=== PATIENT | male | born 1990 | race Caucasian/White ===

== ENCOUNTER 2017-08-07 03:38 | Emergency (ER) | payer BC ==
[2017-08-07] MEDS ORDERED: CIPROFLOXACIN HCL/DEXAMETH OTIC DROP 7.5 ML AD ONE (04:33)
[2017-08-07] MEDS ORDERED: BUPIVACAINE HCL 0.5 % INJ/PF 30 ML SDV INJ ONE (04:33)
[2017-08-07] MEDS ORDERED: AMOXICILLIN TR/POT CLAVULANATE 500-125 MG TAB PO ONE (04:33)
--- NOTE | 2017-08-07 05:25 | ER Document Report ---
ED General - General Chief Complaint: Ear Pain Stated Complaint: EAR PAIN Time Seen by Provider: 08/07/17 04:28 Notes: Patient is a 26-year-old male who presents with complaint of pain in his right ear. He says he does clean his ears a lot with the Q-tips. He says he is had an ear infection his left ear before for similar thing. He says he has had worsening swelling in his ear over the last 2-3 days. He did have some leftover eardrops from his previous infection but says they are not working. He denies any pain or swelling over the mastoid process. No fevers. He does feel that there is some swelling going into the face just anterior to the ear. No other complaints at this time. No difficulty breathing or swallowing. TRAVEL OUTSIDE OF THE [place] IN LAST 30 DAYS: No - Related Data Allergies/Adverse Reactions: No Known Allergies Allergy (Verified 12/16/13 12:58) Past Medical History - Social History Smoking Status: Never Smoker Chew tobacco use (# tins/day): No Frequency of alcohol use: Rare Drug Abuse: None Family History: Reviewed & Not Pertinent Patient has suicidal ideation: No Patient has homicidal ideation: No Renal/ Medical History: Reports: Hx Kidney Stones. Denies: Hx Peritoneal Dialysis Past Surgical History: Reports: Hx Orthopedic Surgery - Immunizations Hx Diphtheria, Pertussis, Tetanus Vaccination: Yes Review of Systems - Review of Systems Notes: My Normal Review Basic REVIEW OF SYSTEMS: CONSTITUTIONAL : Denies fever, chills, or sweats. Denies recent illness. EENT: Right ear pain CARDIOVASCULAR: Denies chest pain. RESPIRATORY: Denies cough, cold, or chest congestion. Denies shortness of breath, difficulty breathing, or wheezing. GASTROINTESTINAL: Denies abdominal pain. Denies nausea, vomiting, or diarrhea. Denies constipation. Last BM: NEUROLOGICAL: Denies altered mental status or loss of consciousness. Denies headache. ALL OTHER SYSTEMS REVIEWED AND NEGATIVE. Physical Exam - Vital signs Vitals: Temp Pulse BP Pulse Ox 99.5 F 93 148/88 H 93 08/07/17 03:48 08/07/17 03:48 08/07/17 03:48 08/07/17 03:48 - Notes Notes: General Appearance: Well nourished, alert, cooperative, no acute distress, no obvious discomfort. Vitals: reviewed, See vital signs table. Head: no swelling or tenderness to the head Eyes: PERRL, EOMI, Conjuctiva clear Mouth: No decreasd moisture Throat: No tonsillar inflammation, No airway obstruction, No lymphadenopathy Neck: Supple, no neck tenderness, Ears: Inflamed swollen right ear canal consistent with otitis externa. Her canal is completely swollen shut. Patient has pain with pulling or movement of the external right ear. No redness or swelling over the mastoid process. Lungs: No wheezing, No rales, No rhonci, No accessory muscle use, good air exchange bilaterally. Heart: Normal rate, Regular rythm, No murmur, no rub Neuro: speech clear, oriented x 3, normal affect, responds appropriately to questions. Course - Re-evaluation Re-evalutation: 08/07/17 07:02 Patient appears to have otitis externa. Being that the ear canals completely shut I will also place him on a systemic antibiotics as well as eardrops. I also gave him a 5 mL syringe of bupivacaine. Informed him he can place 2 drops bupivacaine and is here every 6 hours to help with pain. Encouraged him to return to ER immediately if he has any pain or swelling over the mastoid process , fevers, worsening symptoms. I did show the patient where the mastoid process is located. Patient agrees with plan will be discharged home. Dictation of this chart was performed using voice recognition software; therefore, there may be some unintended grammatical errors. - Vital Signs Vital signs: Temp Pulse Resp BP Pulse Ox 99.5 F 85 142/90 H 96 08/07/17 03:48 08/07/17 05:29 08/07/17 05:29 08/07/17 05:29 Discharge - Discharge Clinical Impression: Otitis externa Qualifiers: Otitis externa type: unspecified type Chronicity: acute Laterality: right Qualified Code(s): H60.501 - Unspecified acute noninfective otitis externa, right ear Condition: Good Disposition: HOME, SELF-CARE Instructions: Otitis Externa ([facility]) Additional Instructions: Please take the antibiotics as prescribed. Please use the Cipro ear drops twice a day for 7 days. Please return to the ER immediately if you develop worsening swelling, fevers, or pain over the bone behind your ear called the Mastoid process. Prescriptions: Amox Tr/Potassium Clavulanate [Augmentin 875-125 Tablet] 1 tab PO BID 7 Days tablet Forms: Return to Work Referrals: LIZETTE LEE MD [Primary Care Provider] - Follow up in 3-5 days
[2017-08-07 05:31] VITALS: BP 142/90
== END 2017-08-07 05:32 | disposition home or self-care (01) ==
LOC: ER 03:38
DX: H60.501 Unspecified acute noninfective otitis externa, right ear (principal); H92.01 Otalgia, right ear
CPT/HCPCS: 99282; J3490 ×2

== ENCOUNTER 2019-07-22 23:39 | Emergency (ER) | payer BC ==
[2019-07-23] MEDS ORDERED: ACETAMINOPHEN 325 MG TABLET PO ONE (00:33)
[2019-07-23 01:05] LABS: ABSOLUTE BASOPHILS # (AUTO) 0.1 10^3/uL (0.0-0.2); ABSOLUTE EOSINOPHILS # (AUTO) 0.1 10^3/uL (0.0-0.6); ABSOLUTE LYMPHOCYTES (AUTO) 1.3 10^3/uL (0.5-4.7); ABSOLUTE MONOCYTES (AUTO) 0.5 10^3/uL (0.1-1.4); ABSOLUTE NEUT (AUTO) 12.3 10^3/uL (1.7-8.2); BASOPHILS % (AUTO) 0.4 % (0-2); EOSINOPHILS % (AUTO) 0.4 % (0-6); HEMATOCRIT 43.2 % (37.9-51.0); HEMOGLOBIN 14.2 g/dL (13.5-17.0); MEAN CORPUSCULAR HEMOGLOBIN 25.7 pg (27.0-33.4); MEAN CORPUSCULAR HGB CONC 32.9 g/dL (32.0-36.0); MEAN CORPUSCULAR VOLUME 78 fl (80-97); MONOCYTES % (AUTO) 3.8 % (3-13); PLATELET COUNT 247 10^3/uL (150-450); RED BLOOD COUNT 5.51 10^6/uL (4.35-5.55); RED CELL DISTRIBUTION WIDTH 13.2 % (11.5-14.0); SEGMENTED NEUTROPHILS % (AUTO) 86.4 % (42-78); TOTAL CELLS COUNTED % (AUTO) 100 %; WHITE BLOOD COUNT 14.3 10^3/uL (4.0-10.5)
[2019-07-23 01:19] LABS: ALBUMIN 4.9 g/dL (3.5-5.0); ALKALINE PHOSPHATASE 64 U/L (38-126); ANION GAP 11 (5-19); ASPARTATE AMINO TRANSFERASE 42 U/L (17-59); BILIRUBIN,DIRECT 0.2 mg/dL (0.0-0.4); BILIRUBIN,TOTAL 0.8 mg/dL (0.2-1.3); BLOOD UREA NITROGEN 19 mg/dL (7-20); CALCIUM 9.9 mg/dL (8.4-10.2); CARBON DIOXIDE 24 mmol/L (22-30); CHLORIDE 103 mmol/L (98-107); GLUCOSE 140 mg/dL (75-110); POTASSIUM 4.7 mmol/L (3.6-5.0)
[2019-07-23 01:36] LABS: APPEARANCE,URINE CLOUDY; BILIRUBIN,URINE NEGATIVE (NEGATIVE); COLOR,URINE AMBER; GLUCOSE, URINE NEGATIVE (NEGATIVE); KETONES,URINE 20 mg/dL (NEGATIVE); LEUKOCYTE ESTERASE,URINE NEGATIVE (NEGATIVE); NITRITE,URINE NEGATIVE (NEGATIVE); PROTEIN,URINE 100 mg/dL (NEGATIVE); URINE SPECIFIC GRAVITY 1.024; UROBILINOGEN,URINE NEGATIVE mg/dL (<2.0)
[2019-07-23] MEDS ORDERED: MORPHINE SULFATE 10 MG/ML INJ IV ONE (02:31)
[2019-07-23] MEDS ORDERED: KETOROLAC TROMETHAMINE INJ/PF 30 MG/1 ML SDV IV ONE (02:31)
[2019-07-23] MEDS ORDERED: ONDANSETRON HCL INJ/PF 4 MG/2 ML SDV IV ONE (02:31)
[2019-07-23] MEDS ORDERED: NORMAL SALINE 1000 ML 1,000 ML IV ONE (02:31)
--- NOTE | 2019-07-23 02:35 | ER Document Report ---
ED GI/ - General Chief Complaint: Abdominal Pain Stated Complaint: FLANK PAIN Time Seen by Provider: 07/23/19 02:24 Notes: Patient is a 28-year-old male that comes emergency department for chief complaint of lower abdominal pain, vomiting, right flank pain. He states he has a history of kidney stones and this feels the same. He states he did have a renal stent around a decade ago but states he has been able to pass all the stone since that time. He denies fever, he denies any other complaints. He denies any abdominal surgeries. TRAVEL OUTSIDE OF THE [place] IN LAST 30 DAYS: No - Related Data Allergies/Adverse Reactions: No Known Allergies Allergy (Verified 07/23/19 00:28) Past Medical History - General Information source: Patient - Social History Smoking Status: Never Smoker Frequency of alcohol use: None Drug Abuse: None Lives with: Family Family History: Reviewed & Not Pertinent Patient has suicidal ideation: No Patient has homicidal ideation: No Renal/ Medical History: Reports: Hx Kidney Stones. Denies: Hx Peritoneal Dialysis Past Surgical History: Reports: Hx Orthopedic Surgery - Immunizations Hx Diphtheria, Pertussis, Tetanus Vaccination: Yes Review of Systems - Review of Systems Constitutional: No symptoms reported EENT: No symptoms reported Cardiovascular: No symptoms reported Respiratory: No symptoms reported Gastrointestinal: See HPI Genitourinary: See HPI Male Genitourinary: No symptoms reported Musculoskeletal: No symptoms reported Skin: No symptoms reported Hematologic/Lymphatic: No symptoms reported Neurological/Psychological: No symptoms reported Physical Exam - Vital signs Vitals: Temp Pulse Resp BP Pulse Ox 98.0 F 80 20 124/108 H 98 07/22/19 23:53 07/22/19 23:53 07/22/19 23:53 07/22/19 23:53 07/22/19 23:53 - Notes Notes: GENERAL: Alert, interacts well. HEAD: Normocephalic, atraumatic. EYES: Pupils equal, round, and reactive to light. Extraocular movements intact. ENT: Oral mucosa moist, tongue midline. Oropharynx unremarkable. Airway patent. LUNGS: Clear to auscultation bilaterally, no wheezes, rales, or rhonchi. No re spiratory distress. HEART: Regular rate and rhythm. No murmur ABDOMEN: There is mild tenderness in the right general abdomen in the mid to lower abdomen but no guarding, no specific McBurney's point tenderness, no rigidity, bowel sounds present. GENITOURINARY: Deferred EXTREMITIES: Moves all 4 extremities spontaneously. No edema, normal radial and dorsalis pedis pulses bilaterally. No cyanosis. BACK: no cervical, thoracic, lumbar midline tenderness. No saddle anesthesia, normal distal neurovascular exam. Moves all extremities in full range of motion. NEUROLOGICAL: Alert and oriented x3. Normal speech. Cranial nerves II through XII grossly intact. PSYCH: Normal affect, normal mood. SKIN: Warm, dry, normal turgor. No rashes or lesions noted. Course - Re-evaluation Re-evalutation: Patient has some right-sided abdominal pain which is actually very benign on exam, no McBurney's point tenderness, he is alert and well-appearing. After medications symptoms completely resolved. No overt CVA tenderness. Discussed options. Because patient has been able to pass multiple stones we decided not to perform CAT scan imaging. CBC shows mild leukocytosis, chemistry unremarkable including renal functioning, urine showing mainly red blood cells with only a few white blood cells. Culture was placed. No fever. Vital signs unremarkable. Ultrasound showing right-sided hydronephrosis consistent with a passing stone but no other concerning findings. On reevaluation patient completely asymptomatic, urinating easily, has no c omplaints. Patient will be provided with symptom management, discussed expectations, follow-up, and return precautions in detail. Patient states appreciation and agreement. Stable at time of discharge. - Vital Signs Vital signs: Temp Pulse Resp BP Pulse Ox 98.5 F 80 16 126/90 H 97 07/23/19 04:10 07/22/19 23:53 07/23/19 04:10 07/23/19 04:10 07/23/19 04:10 - Laboratory Result Diagrams: 07/23/19 00:53 07/23/19 00:53 Laboratory results interpreted by me: 07/23/19 07/23/19 07/23/19 00:53 00:53 00:59 WBC 14.3 H MCV 78 L MCH 25.7 L Lymph % (Auto) 9.0 L Absolute Neuts (auto) 12.3 H Seg Neutrophils % 86.4 H Glucose 140 H Urine Protein 100 H Urine Ketones 20 H Urine Blood LARGE H Urine Ascorbic Acid 40 H Discharge - Discharge Clinical Impression: Flank pain, Ureterolithiasis Abdominal pain Qualifiers: Abdominal location: lower abdomen, unspecified Qualified Code(s): R10.30 - Lower abdominal pain, unspecified Disposition: HOME, SELF-CARE Additional Instructions: You are passing a kidney stone on the right side, no additional kidney stones are seen in your kidneys. Based on the location and work-up I suspect you will be able to pass the stone. Take the pain medication and nausea medication if needed, you can also take the Toradol with these for additional pain medication or for nonsedating pain medication. Drink plenty of fluids. Follow-up with urology referral listed below. Return if you worsen including uncontrolled vomiting, fever, severe worsening pain, or any other concerning symptoms. [facility] [address] [place] [id number] [facility] [address] [place], [place] [id number] Gregory Hightower MD Doctor in [place], [place] Address: [address] [place], [place] [address], [place] [address] Prescriptions: Oxycodone HCl/Acetaminophen [Percocet 5-325 mg Tablet] 1 - 2 tab PO Q6HP PRN #15 tablet PRN Reason: Ketorolac Tromethamine [Toradol 10 mg Tablet] 10 mg PO Q8HP PRN #24 tablet PRN Reason: Ondansetron [Zofran Odt 4 mg Tablet] 1 - 2 tab PO Q4H PRN #15 tab.rapdis PRN Reason: For Nausea/Vomiting Forms: Return to Work
--- NOTE | 2019-07-23 03:31 | RADIOLOGY REPORT (SQ) ---
CLINICAL HISTORY: right flank pain, vomiting COMPARISON: None. TECHNIQUE: US RETROPERITONEUM LIMITED 07/23/2019 2:31 AM [employer] FINDINGS: Right kidney measures 13.4 cm and left kidney measures 13.4 cm. There is mild to moderate right hydronephrosis. Urinary bladder is unremarkable. IMPRESSION: Mild to moderate right hydronephrosis.
[2019-07-23] MEDS ORDERED: HYDROCODONE/ACETAMINOPHEN 5-325 MG (6 TAB/ER DISP) PO PRN (04:04)
[2019-07-23] MEDS ORDERED: ONDANSETRON ODT 4 MG TAB (6 TAB/ER DISP) PO PRN (04:04)
[2019-07-23 04:14] VITALS: BP 126/90
== END 2019-07-23 04:15 | disposition home or self-care (01) ==
LOC: ER 23:39
DX: N20.1 Calculus of ureter (principal); R10.30 Lower abdominal pain, unspecified; R11.10 Vomiting, unspecified; Z87.442 Personal history of urinary calculi
CPT/HCPCS: 99284; 96361; 96374; 96375; 36415; 87086; 83690; 85025; 80053; 81001; 76775; J1885; J2270; J2405; J7030